=== PATIENT | female | born 1955 | race Caucasian/White ===

== ENCOUNTER → 2017-05-04 | Outpatient (REF) ==
[~2017-05-04] MED LIST: /ALEN7SOL OR; /FENO48TA PO; ALTA10CA OR; ASPI325T OR; BRIM1OPD OP; CETI10TA OR; CYCLOSET PO; ESTER C PO; FISH1000 PO; FLUC10TA PO; FOLTX PO; INSULANT SC; LASI40TA OR; MAGN250T OR; METO25TA2 OR; MULTIVIT PO; NEUR600T OR; NITR0.4S SL; NOVALOG SQ; OMEP20TA7 OR; PHEN 25 PO; PILO4SOL OP; PLAV75TA2 OR; SING10TA31 OR; VIT D 2000 PO; VITA400C OR; VYTO10TA5 PO; [UNRECOGNIZED DRUG - OTHER] PO; acidophilus PO; janumet PO; travatan OU
--- NOTE | 2017-05-04 13:51 | REP ---
Clinical: Pain and disability. Comparison: 02/04/2007. Technique: AP, lateral, swimmers, and open-mouth views of the cervical spine. Findings: Evaluation is limited by overlying soft tissue densities. Open mouth view demonstrates normal C1-C2 articulation and odontoid process. Visualized cervical vertebral bodies from the skull base through C5 demonstrate mild degenerative changes including anterior spurring and minimal endplate sclerosis. Remainder examination is incompletely evaluated. Impression: Limited examination demonstrates mild multilevel degenerative changes similar to 2006. Cervical spine from C5-C7 is incompletely evaluated. Signed by Tyler Medrano MD 05/04/2017 01:43 P
== END ==
LOC: M SMT 13:12
PROVIDERS: ATTEND Internal Medicine
DX: Z02.71 Encounter for disability determination (principal)

== ENCOUNTER → 2021-04-07 | Outpatient (CLI) | payer MEDICARE, OTHER ==
[~2021-04-07] MED LIST changes: -/FENO48TA PO; +TRIC1TAB PO
== END ==
LOC: M PT 09:50
PROVIDERS: ATTEND Internal Medicine
DX: E13.40 Other specified diabetes mellitus with diabetic neuropathy, unspecified (principal)

== ENCOUNTER → 2022-08-07 | Outpatient (CLI) | payer MEDICARE, OTHER ==
[~2022-08-07] MED LIST changes: +ISOVUE-370 76% 100ML VIAL As Ordered ONE
== END ==
LOC: M RAD 10:17
PROVIDERS: ATTEND Internal Medicine
DX: R91.1 Solitary pulmonary nodule (principal)
CPT/HCPCS: 71260; Q9967